=== PATIENT | male | born 1940 | race Caucasian/White ===

== ENCOUNTER 2017-08-09 14:17 | Emergency (ER) | payer MEDICARE, OTHER ==
[2017-08-09 14:52] VITALS: BP 143/89
--- NOTE | 2017-08-09 15:13 | EDM.PDOC ---
ED HPI GENERAL MEDICAL PROBLEM - General Chief Complaint: ENT Problem Stated Complaint: HEARING LOSS; COLD Time Seen by Provider: 08/09/17 15:12 Source of Information: Reports: Patient History Limitations: Reports: No Limitations - History of Present Illness INITIAL COMMENTS - FREE TEXT/NARRATIVE: pt arrived with a history of feeling like his ears are plugged. He has been coughing but has not been raising sputum. Onset: Gradual Duration: Day(s): Associated Symptoms: Reports: Headaches, Other ( feels like his nose is plugged. ) - Related Data Allergies Allergy/AdvReac Type Severity Reaction Status Date / Time No Known Allergies Allergy Verified 02/22/14 20:42 Home Meds: Home Meds Lisinopril/Hydrochlorothiazide [Lisinopril-Hctz 20-25 mg Tab] 20 - 25 mg PO DAILY 07/30/16 [History] Simvastatin [Zocor] 40 mg PO DAILY 07/30/16 [History] metFORMIN [Glucophage] 1,000 mg PO BID 07/30/16 [History] Aspirin 1 tab PO DAILY 08/09/17 [History] Past Medical History HEENT History: Reports: Cataract, Impaired Vision Cardiovascular History: Reports: Hypertension Endocrine/Metabolic History: Reports: Diabetes, Type II - Infectious Disease History Infectious Disease History: Reports: Hepatitis A - Past Surgical History GI Surgical History: Reports: Appendectomy Social & Family History - Tobacco Use Smoking Status *Q: Never Smoker - Alcohol Use Number of Drinks Per Day: 3 - Recreational Drug Use Recreational Drug Use: No ED ROS ENT - Review of Systems Review Of Systems: See Below Constitutional: Reports: Fatigue HEENT: Reports: Sinus Problem, Other (pt feels like his nose is plugged and that his ears are plugged. ) Respiratory: Reports: Cough Cardiovascular: Reports: No Symptoms Endocrine: Reports: No Symptoms GI/Abdominal: Reports: No Symptoms : Reports: No Symptoms ED EXAM, ENT - Physical Exam Exam: See Below Text/Narrative:: pt is here because his ears are plugged. He has alot stuffiness in the nose. He is coughing. Exam Limited By: No Limitations General Appearance: Alert, No Apparent Distress Ears: Other (pt has fluid behind the drums bilaterally. ) Nose: Other (pt has swelling of the mcous membranes. ) Mouth/Throat: Normal Inspection Head: Atraumatic Neck: Normal Inspection Respiratory/Chest: No Respiratory Distress Cardiovascular: Regular Rate, Rhythm Course - Vital Signs Last Recorded V/S: Last Vital Signs Temp 36.0 C 08/09/17 14:56 Pulse 70 08/09/17 14:56 Resp 16 08/09/17 14:56 BP 143/89 H 08/09/17 14:56 Pulse Ox 97 08/09/17 14:56 - Orders/Labs/Meds Labs: Laboratory Tests 08/09/17 Range/Units 15:21 WBC 8.5 (4.5-11.0) K/uL RBC 4.35 (4.30-5.90) M/uL Hgb 13.0 (12.0-15.0) g/dL Hct 38.5 L (40.0-54.0) % MCV 89 (80-98) fL MCH 30 (27-31) pg MCHC 34 (32-36) % Plt Count 239 (150-400) K/uL Neut % (Auto) 60 (36-66) % Lymph % (Auto) 27 (24-44) % Ford % (Auto) 10 H (2-6) % Eos % (Auto) 3 (2-4) % Baso % (Auto) 0 (0-1) % - Re-Assessments/Exams Free Text/Narrative Re-Assessment/Exam: 08/09/17 16:09 pt had a normal wbc. Departure - Departure Time of Disposition: 16:09 Disposition: Home, Self-Care 01 Condition: Fair Clinical Impression: Serous otitis media, Sinusitis - Discharge Information Referrals: Dread Weiner MD [Primary Care Provider] - Forms: ED Department Discharge Care Plan Goals: push fluids, cool mist humidifier, zrtec 10 mg daily for congestion for no more than 1 week, zithromax 250 2 tabs now and 1 tab daily for 6 days.
== END 2017-08-09 16:22 | disposition home or self-care (01) ==
LOC: JP.ED 14:17
DX: H65.93 Unspecified nonsuppurative otitis media, bilateral (principal); J32.9 Chronic sinusitis, unspecified; E11.9 Type 2 diabetes mellitus without complications; I10 Essential (primary) hypertension; Z79.899 Other long term (current) drug therapy; Z79.84 Long term (current) use of oral hypoglycemic drugs; Z79.82 Long term (current) use of aspirin; Z90.49 Acquired absence of other specified parts of digestive tract
CPT/HCPCS: 36415; 85025; 99283; 99284

== ENCOUNTER 2019-12-11 11:04 | Emergency (ER) | payer MEDICARE, OTHER ==
[2019-12-11 11:20] VITALS: BP 177/98; PULSE 50
--- NOTE | 2019-12-11 11:53 | EDM.PDOC ---
ED HPI GENERAL MEDICAL PROBLEM - General Chief Complaint: ENT Problem Stated Complaint: nose bleed Time Seen by Provider: 12/11/19 11:48 Source of Information: Reports: Patient, RN Notes Reviewed History Limitations: Reports: No Limitations - History of Present Illness INITIAL COMMENTS - FREE TEXT/NARRATIVE: 79-year-old gentleman presents emergency department a complaint of bleeding from the right side of his nose, he states it started within the last hour he has not been able to get it stopped, no lightheadedness or passing out, always has a nosebleed on the right side - Related Data Allergies Allergy/AdvReac Type Severity Reaction Status Date / Time No Known Allergies Allergy Verified 12/11/19 11:21 Home Meds: Home Meds Lisinopril/Hydrochlorothiazide [Lisinopril-Hctz 20-25 mg Tab] 20 - 25 mg PO DAILY 07/30/16 [History] Simvastatin [Zocor] 40 mg PO DAILY 07/30/16 [History] metFORMIN [Glucophage] 1,000 mg PO BID 07/30/16 [History] Aspirin 1 tab PO DAILY 08/09/17 [History] Past Medical History HEENT History: Reports: Cataract, Epistaxis (Recurrent), Impaired Vision Cardiovascular History: Reports: Hypertension Musculoskeletal History: Reports: Fracture Endocrine/Metabolic History: Reports: Diabetes, Type II Oncologic (Cancer) History: Reports: Other (See Below) Other Oncologic History: "trouble spots on top of head" - Infectious Disease History Infectious Disease History: Reports: Hepatitis A - Past Surgical History HEENT Surgical History: Reports: Cataract Surgery GI Surgical History: Reports: Appendectomy Social & Family History - Tobacco Use Smoking Status *Q: Never Smoker - Caffeine Use Caffeine Use: Reports: Coffee ED ROS ENT - Review of Systems Review Of Systems: See Below Constitutional: Reports: No Symptoms HEENT: Reports: Nosebleed Respiratory: Reports: No Symptoms Cardiovascular: Reports: No Symptoms ED EXAM, ENT - Physical Exam Exam: See Below Exam Limited By: No Limitations General Appearance: Alert, WD/WN, No Apparent Distress Nose: Normal Inspection, Normal Mucousa, No Blood, Dried Blood. No: Active Bleeding Respiratory/Chest: No Respiratory Distress Course - Vital Signs Last Recorded V/S: Last Vital Signs Temp 96.6 F 12/11/19 11:26 Pulse 50 L 12/11/19 11:26 Resp 22 H 12/11/19 11:26 BP 177/98 H 12/11/19 11:26 Pulse Ox 98 12/11/19 11:26 Departure - Departure Time of Disposition: 12:28 Disposition: Home, Self-Care 01 Condition: Fair Clinical Impression: Epistaxis - Discharge Information Instructions: Nosebleed, Adult Referrals: Dread Weiner MD [Primary Care Provider] - Forms: ED Department Discharge Additional Instructions: Continue with your regular medications, please followup with your primary care provider in 3-5 days if not better, please call return to the emergency department with worsening of symptoms. Consider consultation with ear nose and throat in the future Sepsis Event Note - Evaluation Sepsis Screening Result: No Definite Risk - Focused Exam Vital Signs: Vital Signs Temp Pulse Resp BP Pulse Ox 12/11/19 11:26 96.6 F 50 L 22 H 177/98 H 98 12/11/19 11:19 96.6 F 50 L 22 H 177/98 H 98 Date Exam was Performed: 12/11/19 Time Exam was Performed: 12:27 - Assessment/Plan Plan: Assessment Acuity = acute Site and laterality = epistaxis with spontaneous resolution Etiology = unknown Manifestations = none Location of injury = Home Lab values = none Plan No intervention at this time continue follow-up with his primary care as needed recommend ENT consult at some time given his recurrent history This note was dictated using [employer] voice recognition software please call with any questions on syntax or grammar.
== END 2019-12-11 12:37 | disposition home or self-care (01) ==
LOC: JP.ED 11:04
DX: R04.0 Epistaxis (principal); E11.9 Type 2 diabetes mellitus without complications; I10 Essential (primary) hypertension; Z79.899 Other long term (current) drug therapy; Z79.82 Long term (current) use of aspirin; Z79.84 Long term (current) use of oral hypoglycemic drugs
CPT/HCPCS: 99281; 99283